=== PATIENT | female | born 1995 ===

== ENCOUNTER 2021-03-10 19:06 | Emergency (ER) | payer OTHER ==
[~2021-03-10] VITALS: Ht 152.4 cm; Wt 54.4 kg
[2021-03-10 19:10] VITALS: BP 132/75
--- NOTE | 2021-03-10 19:13 | NUR ---
to lobby a/w bed ambulatory
--- NOTE | 2021-03-10 20:03 | NUR ---
PT AMBULATED TO BED 12
--- NOTE | 2021-03-10 20:23 | NUR ---
s/p stepped on a piece of wood 1hr and 30 minutes ago on her left foot. patient reports taking it out and still feels like it's still there. patient reports putting in hydrogen peroxide to clean the wound, bleeding is controlled. patient able to move all toes and extremity. patient does not complain of pain but discomfort. tetanus vaccine utd. AAOx4. VSS. [facility] denies NKA
[2021-03-10] MEDS ORDERED: ACETAMINOPHEN 325 MG TAB PO ONE (21:15)
[2021-03-10] MEDS ORDERED: AMOXIL/CLAVULANATE 875/125 MG 1 TAB PO ONE (21:15)
--- NOTE | 2021-03-10 21:16 | NUR ---
patient declined tDap. ERMD made aware
[2021-03-10] MEDS ORDERED: BACITRACIN OINT 500 UNITS/GM PKT TP ONE (21:20)
[2021-03-10] MEDS ORDERED: IBUP-1842 PO (21:26)
[2021-03-10] MEDS ORDERED: AMOX-1000 PO (21:26)
[2021-03-10 21:56] VITALS: BP 103/63
--- NOTE | 2021-03-10 21:56 | NUR ---
Patient discharged with v/s stable. Written and verbal after care instructions given and explained. Patient alert, oriented and verbalized understanding of instructions. Ambulatory with steady gait. All questions addressed prior to discharge. ID band removed. Patient advised to follow up with PMD. Rx of Motrin and Augmentin [id number] given. Patient educated on indication of medication including possible reaction and side effects. Opportunity to ask questions provided and answered.
== END 2021-03-10 21:56 | disposition home or self-care (01) ==
LOC: MED 19:06
DX: S91.331A Puncture wound without foreign body, right foot, initial encounter (principal); W45.8XXA Other foreign body or object entering through skin, initial encounter; Y93.01 Activity, walking, marching and hiking; Y92.096 Garden or yard of other non-institutional residence as the place of occurrence of the external cause; Y99.8 Other external cause status
CPT/HCPCS: 73630; 90715; 99284

== ENCOUNTER 2023-10-06 18:26 | Emergency (ER) | payer OTHER ==
[~2023-10-06] VITALS: Ht 152.4 cm; Wt 53.1 kg
[~2023-10-06 18:26] MED LIST: AMOX-1000 PO; IBUP-1842 PO
[2023-10-06 18:32] VITALS: BP 99/64; PULSE 81; RESP 16; TEMP 98.6; O2SAT 100
[2023-10-06] MEDS ORDERED: ERYT5OIN51 OP (18:50)
[2023-10-06 19:02] VITALS: BP 121/78; PULSE 81; RESP 16; TEMP 98.6; O2SAT 100
== END 2023-10-06 19:02 | disposition home or self-care (01) ==
LOC: MED 18:26
DX: H01.004 Unspecified blepharitis left upper eyelid (principal); Z79.899 Other long term (current) drug therapy
CPT/HCPCS: 99283